=== PATIENT | male | born 1995 | race Caucasian/White ===

== ENCOUNTER 2017-10-25 18:53 | Emergency (ER) | payer BC, OTHER ==
[~2017-10-25] VITALS: Ht 177.8 cm; Wt 124.7 kg
[2017-10-25 18:58] VITALS: BP 128/83
[2017-10-25] MEDS ORDERED: NEXIUM 40 MG CA40 M1 PO (19:01)
[2017-10-25] MEDS ORDERED: XANAX 0.5 MG0.5 MG PO (19:02)
[2017-10-25] MEDS ORDERED: MOBIC7.5 MG PO (19:47)
== END 2017-10-25 19:52 | disposition home or self-care (01) ==
LOC: ER 18:53
DX: S93.401A Sprain of unspecified ligament of right ankle, initial encounter (principal); W18.43XA Slipping, tripping and stumbling without falling due to stepping from one level to another, initial encounter; Y93.89 Activity, other specified; Y92.89 Other specified places as the place of occurrence of the external cause; Y99.8 Other external cause status